=== PATIENT | female | born 2000 | race African-American/Black ===

== ENCOUNTER 2021-11-30 22:53 | Emergency (ER) | payer OTHER ==
--- NOTE | 2021-12-01 00:16 | ED Physician Documentation ---
PD HPI OPHTHO - Stated complaint Stated Complaint: BLURRY VISION/HEADACHE/LT EAR PULSE - Chief complaint Chief Complaint: Neuro - History obtained from History obtained from: Patient - Additional information Additional information: Patient presenting for evaluation of single left eye floater which she noticed this evening at 8 PM in the left eye. She describes it as a squiggly black line in the upper outer portion of her left visual field.She denies any acute changes to her vision. . Patient is 28 weeks with an uncomplicated . She has been feeling the baby move. She has been experiencing migraine headaches for the last several weeks and has seen an edi manager which diagnosed her with havingSwollen optic nerves to both eyes. However she was told due to the that she is not able to receive treatment for it. She was told she has astigmatism and is awaiting on prescription glasses for that.She does take Tylenol for her migraines which does help. She denies trauma.Denies thunderclap in intensity of her headaches. Denies focal weakness.Denies cloudy or loss of vision.Patient has been monitoring her blood pressures through her and they have been normal.This is her first . Review of Systems Constitutional: denies: Fever Eyes: reports: Other (Left eye floater) Ears: denies: Loss of hearing Nose: denies: Congestion Throat: denies: Dental pain / toothache Cardiac: denies: Chest pain / pressure Respiratory: denies: Dyspnea, Cough GI: reports: Nausea (With headaches, using Zofran). denies: Abdominal Pain, Vomiting : denies: Vaginal bleeding Skin: denies: Rash Neurologic: reports: Headache. denies: Syncope PD PAST MEDICAL HISTORY - Past Medical History Past Medical History: Yes Neuro: Headaches HEENT: Other Musculoskeletal: Chronic back pain Other Past Medical History: swelling of optic nerve - Past Surgical History Past Surgical History: No - Present Medications Home Medications: Ambulatory Orders Medication Instructions Recorded Confirmed No Known Home Medications 11/30/21 11/30/21 - Allergies Allergies/Adverse Reactions: Allergies Allergy/AdvReac Type Severity Reaction Status Date / Time No Known Drug Allergies Allergy Verified 11/30/21 23:00 - Social History Does the pt smoke?: No Smoking Status: Never smoker Does the pt drink ETOH?: No Does the pt have substance abuse?: No - Immunizations Immunizations are current?: Yes PD ED PE NORMAL - General General: Alert and oriented X 3, No acute distress, Well developed/nourished - HEENT HEENT: Atraumatic, PERRL, EOMI, Ears normal, Moist mucous membranes, Pharynx benign, Dentition benign - Neck Neck: Supple, no meningeal sign - Cardiac Cardiac: RRR, No gallop, Strong equal pulses - Respiratory Respiratory: No respiratory distress, Clear bilaterally - Abdomen Abdomen: Normal bowel sounds, Soft, Non tender, Non distended, Other (Gravid abdomen) - Derm Derm: Normal color - Extremities Extremities: No deformity - Neuro Neuro: Alert and oriented X 3, 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 Her visual acuity is intact. There is no change to her vision and no pain. Symptoms do not suggest acute angle glaucoma. No signs of eye infection.Extraocular movements are intact.No signs of foreign body Or globe rupture. I discussed with the patient the possible etiologies of a floater in her eye which could include an issue with her retina.I do not think she needs emergent ophthalmology evaluation in the middle of the night As her vision is normal and there is no eye pain but do feel she needs urgent evaluation within 24 hours. Patient was advised that she needs urgent ophthalmology evaluation tomorrow and was given information for local breakfast manager. Patient was advised that if she is not able to see an breakfast manager tomorrow that she should return to the emergency department for assistance. She was also given strict return precautions for any changes to her vision, development of pain, worsening headache. In regards to her headache, I do not think she needs emergent imaging. Her exam does not suggest Of stroke, Hemorrhage, dissection or sinus thrombosis. Her blood pressure is within normal limits and she does not exhibit features of preeclampsia. Reassuring heart tones and tracings. Departure - Departure Disposition: 01 Home, Self Care Clinical Impression: Vitreous floaters of left eye Condition: Stable Instructions: Flashes and Floaters Tx Follow-Up: Zachary Blackburn MD [Provider Admit Priv/Credential] - Comments: You were evaluated for a floater in your left eye. The exact cause is unclear but you need to be seen by an breakfast manager (eye doctor) withing 24 hours As this eye floater could indicate a problem with your retina. If this gets worse and there is a problem with your retina, it could permanently impact your vision. Fortunately at this time your vision appears normal. Please call Dr. Zachary Blackburn at [facility] tomorrow morning [phone] at 8 AM for an appointment. If you are not able to be seen tomorrow (Wednesday) by an breakfast manager, Return to the emergency department. If it anytime you have a change in your vision, worsening pain, any new symptoms then please return immediately to the emergency department. Discharge Date/Time: 12/01/21 00:27
[2021-12-01 00:29] VITALS: BP 123/72
== END 2021-12-01 00:27 | disposition home or self-care (01) ==
LOC: ED 22:53
DX: H43.392 Other vitreous opacities, left eye (principal); O99.891 Other specified diseases and conditions complicating pregnancy; Z3A.28 28 weeks gestation of pregnancy
CPT/HCPCS: 99282; 99284

== ENCOUNTER 2022-12-31 10:01 | Day surgery (SDC) | payer OTHER ==
[2022-12-31] MEDS ORDERED: BUPIVACAINE 0.25% PF 30 ML VIAL ONE ×2 (10:05→10:06)
[2022-12-31] MEDS ORDERED: LIDOCAINE MPF 2%-EPI 1:200000 20 ML VIAL ONE (10:05)
[2022-12-31] MEDS ORDERED: LACTATED RINGERS 1,000 ML IV ONE ×2 (10:07→13:41)
[2022-12-31] MEDS ORDERED: CEFAZOLIN 2G/50ML 0.9% NS 2 GM/50 ML BAG IV ONE (10:13)
[2022-12-31] MEDS ORDERED: MIDAZOLAM 2 MG/2 ML VIAL ONE (10:17)
[2022-12-31 10:18] LABS: HCG UR QUAL NEGATIVE
[2022-12-31] MEDS ORDERED: LIDOCAINE-PF 2% 10 ML AMP SUBQ ONE (10:18)
[2022-12-31] MEDS ORDERED: fentaNYL 100 MCG/2 ML VIAL ONE (10:18)
[2022-12-31] MEDS ORDERED: ROPIVACAINE 0.5% PF 20 ML VIAL ONE (10:18)
--- NOTE | 2022-12-31 10:41 | ANESTHESIA ---
Pre-Anesthesia VS, & Labs - Diagnosis ventral hernia - Procedure open ventral hernia repair with mesh Vital Signs: Temp Pulse Resp BP Pulse Ox O2 Flow Rate 35.8 C L 58 L 18 121/66 100 12/31/22 10:18 12/31/22 10:18 12/31/22 10:18 12/31/22 10:18 12/31/22 10:18 Height: 5 ft 2 in Weight (kg): 76 kg Body Mass Index: 30.6 BMI Classification: Obese - NPO >8 hours - Is Patient ?: No - Lab Results Lab results reviewed: Yes Home Medications and Allergies No Known Home Medications 11/30/21 Allergies/Adverse Reactions: Allergies Allergy/AdvReac Type Severity Reaction Status Date / Time No Known Drug Allergies Allergy Verified 11/30/21 23:00 Anes History & Medical History - Anesthetic History Anesthesia Complications: reports: No previous complications Family history of Anesthesia Complications: Denies Family history of Malignant Hyperthermia: Denies - Medical History Cardiovascular: reports: None Pulmonary: reports: None Gastrointestinal: reports: None Urinary: reports: None Neuro: reports: Headaches Musculoskeletal: reports: Chronic back pain Endocrine/Autoimmune: reports: None Skin: reports: Eczema Smoking Status: Never smoker - Surgical History Gynecologic: reports: section Exam General: Alert, Oriented x3, Cooperative Dental: WNL Mouth Openin Fingerbreadth Neck Mobility: Normal Mallampati classification: II Thyromental Distance: 4-6 cm Respiratory: Lungs clear, Normal breath sounds, No respiratory distress Cardiovascular: Regular rate Neurological: Normal speech Mental/Cognitive Status: Alert/Oriented X3, Normal for patient Cognitive Status: Within normal limits Plan Anesthesia Type: General Consent for Procedure(s) Verified and Reviewed: Yes Code Status: Attempt Resuscitation ASA classification: 2-Mild systemic disease Is this case an emergency?: No
[2022-12-31] MEDS ORDERED: MORPHINE 2 MG/ML CARPUJECT IVP PRN (10:42)
[2022-12-31] MEDS ORDERED: ePHEDrine 50 MG/ML VIAL IVP PRN (10:42)
[2022-12-31] MEDS ORDERED: METOCLOPRAMIDE 10 MG/2 ML VIAL IVP PRN (10:42)
[2022-12-31] MEDS ORDERED: ONDANSETRON 4 MG/2 ML VIAL IVP PRN ×2 (10:42→12:53)
[2022-12-31] MEDS ORDERED: NALOXONE 0.4 MG/ML VIAL IVP PRN (10:42)
[2022-12-31] MEDS ORDERED: ATROPINE ABBOJECT 1 MG/10 ML SYRINGE IVP PRN (10:42)
[2022-12-31] MEDS ORDERED: HYDROmorphone 0.5 MG/0.5 ML SYRINGE IVP PRN ×2 (10:42→12:53)
[2022-12-31] MEDS ORDERED: fentaNYL 100 MCG/2 ML VIAL IVP PRN (10:42)
--- NOTE | 2022-12-31 10:55 | HISTORY & PHYSICAL EXAMINATION ---
Chief Complaint - Chief Complaint Chief Complaint: hernia bulge above belly button History of Present Illness - History Obtained From Records Reviewed: yes History obtained from: pt Exam Limitations: none - History of Present Illness HPI Comment/Other: hernia following History - Past Medical History Cardiovascular: reports: None Respiratory: reports: None Neuro: reports: Headaches Endocrine/Autoimmune: reports: None GI: reports: None : reports: None HEENT: reports: Chronic vision loss Psych: reports: None Musculoskeletal: reports: Chronic back pain Derm: reports: Eczema MRSA Hx?: No - Past Surgical History /PBX SUPERVISOR: reports: section Meds/Allgy - Home Medications Home Medications: Ambulatory Orders Medication Instructions Recorded Confirmed No Known Home Medications 11/30/21 12/24/22 - Allergies Allergies/Adverse Reactions: Allergies Allergy/AdvReac Type Severity Reaction Status Date / Time No Known Drug Allergies Allergy Verified 11/30/21 23:00 Review of Systems - Other Findings Other Findings: 10 pt ros as above otherwise unremarkable Exam - Vital Signs Reviewed Vital Signs: Yes Vital Signs: Vital Signs x48h Temp Pulse Resp BP Pulse Ox 12/31/22 10:18 35.8 C L 58 L 18 121/66 100 - Physical Exam General Appearance: positive: No acute distress, Alert Eyes Bilateral: positive: PERRL, EOMI ENT: positive: No signs of dehydration Neck: positive: No JVD, Trachea midline Respiratory: positive: Breath sounds nml Cardiovascular: positive: Regular rate & rhythm Abdomen: positive: Other (4 cm ventral hernia just cephalad of the umbilicus and diastasis) Neurologic/Psychiatric: positive: Oriented x3 Conclusion/Plan - Problem List (1) Ventral hernia Conclusion/Plan: plan open repair with mesh. parq held and consent obtained - Lab Results Lab results reviewed: Yes
[2022-12-31] MEDS ORDERED: LACTATED RINGERS 1,000 ML IV SCH (11:00)
[2022-12-31] MEDS ORDERED: DEXAMETHASONE 4 MG/ML VIAL ONE (11:09)
[2022-12-31] MEDS ORDERED: ONDANSETRON 4 MG/2 ML VIAL ONE ×2 (11:09→12:57)
[2022-12-31] MEDS ORDERED: BUPIVACAINE 0.25% PF 30 ML VIAL SUBQ ONE (11:13)
[2022-12-31] MEDS ORDERED: oxyCODONE 5 MG TABLET PO PRN (12:53)
--- NOTE | 2022-12-31 12:58 | OPERATIVE REPORT ---
Operative Report - General Procedure Date: 12/31/22 Planned Procedure: open ventral hernia repair with mesh Pre-Op Diagnosis: ventral hernia Procedure Performed: open ventral hernia repair with mesh Post Op Diagnosis: ventral hernia - Procedure Note Primary Surgeon: noreen lopez Anesthesia Technique: General ET tube, Local Pathology: not sent Estimated Blood Loss (mL): 2 Drain/Tube Type: Other (none) Indications: painful hernia bulge Findings: 4 x 6 cm defect 1.5 to 2 in x 4.5 inch mesh placed preperitoneal Complications: none - Other Other Information/Narrative: The patient was properly identified brought to the operating room and placed in supine position. Sequential compression devices were placed. General endotracheal anesthesia was induced. She was prepped and draped in a sterile fashion and given preoperative antibiotics. She had a sizable defect cephalad and at her umbilicus. Skin had been stretched. She has a diastases as well. An elliptical incision measuring approximately 5 cm in length was made just cephalad of her umbilicus. An ellipse of skin and subcutaneous tissue was removed down to the hernia sac. Hernia sac was carefully released from the fascial defect edge in all directions with use of cutting current cautery. The peritoneum was carefully peeled off from the underside of the rectus. A 2 mm hole in the peritoneum was closed with a [id number] 3-0 Vicryl. She had a fascial defect of approximately 4 x 6 to 8 cm. The diastases was imbricated with a few interrupted 0 Ethibond sutures. 1 and half to 2 inch wide by 4 and half inch tall polypropylene mesh was placed and secured with well over a dozen interrupted 0 Ethibond sutures. Sutures were placed 2 to 3 cm back from the fascial defect edge in all directions. Fascia was then closed over the mesh with three-point interrupted 0 Tycron suture. Mesh lay in good position without tension. No apparent complications. Counts were correct. Umbilical skin was tacked back down to fascia with interrupted 2-0 Vicryl. Cutaneous tissue was closed with multiple interrupted 2-0 Vicryl sutures. Buried interrupted subdermal 3-0 Vicryl sutures were then placed. Skin was closed with a running 4-0 Monocryl subcuticular suture. Dressing was applied. She tolerated the procedure well was awakened and brought to recovery in good condition.
[2022-12-31] MEDS ORDERED: LACTATED RINGERS 100 ML IV ONE (12:59)
[2022-12-31] MEDS ORDERED: HYDROmorphone 1 MG/ML CARPUJECT ONE (13:10)
--- NOTE | 2022-12-31 13:25 | ANESTHESIA POST OP EVALUATION ---
Anesthesia Post Eval - Post Anesthesia Eval Vitals: Last Vital Signs Temp 36.1 C L 12/31/22 13:20 Pulse 73 12/31/22 13:20 Resp 19 12/31/22 13:20 BP 121/78 12/31/22 13:20 Pulse Ox 99 12/31/22 13:20 O2 Flow Rate CV Function Including HR & BP: Stable Pain Control: Satisfactory Nausea & Vomiting: Negative Mental Status: Baseline Respiratory Status: Airway Patent Hydration Status: Satisfactory Anesthesia Complications: None
[2022-12-31] MEDS ORDERED: oxyCODONE 5 MG TABLET ONE (14:05)
[2022-12-31 14:21] VITALS: BP 108/73
== END 2022-12-31 10:02 | disposition home or self-care (01) ==
LOC: SDS 10:01
PROVIDERS: ATTEND Surgery
DX: K43.9 Ventral hernia without obstruction or gangrene (principal); E66.9 Obesity, unspecified; Z68.30 Body mass index [BMI] 30.0-30.9, adult
CPT/HCPCS: 49593; 81025; A9270; C1781; J0690; J1170; J2795; J7120

== ENCOUNTER 2024-08-19 12:43 | Observation (INO) ==
--- NOTE | 2024-08-19 12:51 | ED Physician Documentation ---
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 ) Meds/Allgy Home Medications Ambulatory Orders Medication Instructions Recorded Confirmed No Known Home Medications 08/19/24 08/19/24 Allergies Allergies Allergy/AdvReac Type Severity Reaction Status Date / Time No Known Drug Allergies Allergy Verified 08/19/24 13:05 [facility] Medical History Medical History (Updated 08/19/24 @ 16:02 by Mahamed Mae MD) Sickle cell anemia Surgical History Surgical History (Updated 08/19/24 @ 15:43 by Mahamed Mae MD) H/O ventral hernia repair Social History Social History (Updated 08/19/24 @ 13:04 by Maite Ruiz RN) Smoking Status: Never smoker Do you vape?: No Living arrangement: At home Support Person: No Relationship: Level: Independent Do you feel safe in your home environment?: Yes Suffered physical, verbal, emotional, or financial abuse?: No History of Abuse: No Exam Constitutional normal general appearance and average body habitus HENMT oral mucous membranes normal Respiratory breath sounds equal bilaterally and normal respiratory effort Cardiovascular normal heart rate noted and regular rhythm noted Gastrointestinal abdomen soft to palpation, tender to palpation (moderate), (RLQ) and (suprapubic) and nontender to percussion Genitourinary no CVA tenderness Extremities normal to inspection Psychiatry mental status grossly normal, oriented x3 and thought process normal Skin skin color abnormal (pale) Results Vitals Vitals: Vital Signs - 24 hr 08/19/24 12:52 08/19/24 13:06 08/19/24 13:14 Temperature 36.4 C L Temperature Source Pulse Rate 90 Respiratory Rate 25 H Blood Pressure 101/77 O2 Saturation 100 O2 Source Room air Pain Intensity 7 7 7 08/19/24 13:16 08/19/24 13:31 08/19/24 13:43 Temperature Temperature Source Pulse Rate 71 Respiratory Rate 23 Blood Pressure 128/58 L O2 Saturation 100 O2 Source Room air Pain Intensity 7 3 2 08/19/24 13:49 08/19/24 14:02 08/19/24 14:45 Temperature 36 C L Temperature Source Temporal Artery Scan Pulse Rate 88 68 Respiratory Rate 16 18 Blood Pressure 107/70 99/53 L O2 Saturation 99 99 O2 Source Room air Room air Pain Intensity 2 6 6 08/19/24 15:33 Temperature Temperature Source Pulse Rate 84 Respiratory Rate 20 Blood Pressure 97/51 L O2 Saturation 97 O2 Source Room air Pain Intensity 4 Oxygen O2 Source Room air Labs Labs: Laboratory Tests 08/19/24 08/19/24 08/19/24 12:48 13:23 15:30 WBC 11.7 H RBC 3.50 L Hgb 9.3 L 7.6 L Hct 28.2 L 23.6 L MCV 80.6 L MCH 26.6 L MCHC 33.0 RDW 15.3 H Plt Count 327 MPV 13.0 H Neut # (Auto) 9.8 H Lymph # (Auto) 1.4 L [place] # (Auto) 0.5 Eos # (Auto) 0.0 Baso # (Auto) 0.0 Absolute Nucleated RBC 0.00 Nucleated RBC % 0.0 Sodium 132 L Potassium 4.1 Chloride 99 L Carbon Dioxide 19 L Anion Gap 14.0 H BUN 14 Creatinine 1.1 Estimated GFR (MDRD) 74 L Glucose 157 H Calcium 9.4 Magnesium 1.5 L Total Bilirubin 0.7 AST 9 L ALT 15 Alkaline Phosphatase 45 Total Protein 7.2 Albumin 4.3 Globulin 2.9 Albumin/Globulin Ratio 1.5 Lipase 17 Beta HCG, Quant 79437.5 Blood Type A POSITIVE Blood Type Recheck A POSITIVE Antibody Screen NEGATIVE Crossmatch IS Only See Detail Rads (name of study) OB US: Relevant Findings:: Prelim report reviewed (from US tech: mass in lower uterine segment/cervix. No adnexal masses. Some free fluid in pelvis. ) and Final report received (no IUP. No adnexal masses. Debris/mass in lower uterine segment c/w incomplete miscarriage.) PD Medical Decision Making ED course Complexity details: considered differential (Patient is approximately 6 to 7 weeks by dates with vaginal bleeding and cramping consistent with miscarriage. She is near syncopal with EMS and has relatively low blood pressure here. Had IV and fluids started. Type and cross was done.), d/w patient and d/w travel consultant (Dr. Mae, PET HOUSE SITTER) ED course: Early notification of on-call PET HOUSE SITTER given the degree of stated bleeding and the mild hypotension in the near syncope along with the vaginal bleeding. Ultrasound was ordered. Type and cross was ordered. IV was started with antiemetic and Toradol and IV fluids given. She remained normotensive but just marginally so with systolic blood pressure 98-106. Heart rate was not tachycardic. Initial blood count showed a hemoglobin of 9.6. She does not know what her baseline blood count is. History of sickle cell trait but not sickle cell disease so I would expect not an regular anemia. Ultrasound was concerning for some mass in the lower outer and lower uterine segment and cervix. No notable free fluid. Dr. Mae was here in the ER having been notified early on. He did see the ultrasound as well. He performed a pelvic exam and pulled out a parent gestational sac. The patient's repeat blood count was now 7.6 hemoglobin. She is feeling generally weak. She was still having some ongoing bleeding so this seemed appropriate for transfusion of a unit of blood after concurrence with Dr. Mae. She was continue with some IV fluids. I had given 1 g of tranexamic acid earlier as well. The patient is stable at this point but Dr. Dover will place her in observation for evaluating ongoing blood loss and vital signs and transfusion of blood. Discharge Plan Discharge Patient Disposition: ED Place in Observation Condition: Stable Clinical Impression: Acute blood loss anemia, Miscarriage, Uterine bleeding, Sickle cell trait Interventions: ED Admission Assessment Last Done: 08/19/24 16:15
[2024-08-19 13:06] LABS: BASOPHILS % (AUTO) 0.2 %; HCT - HEMATOCRIT 28.2 % (37.0-47.0); HGB - HEMOGLOBIN 9.3 g/dL (12.0-16.0); LYMPHOCYTES # (AUTO) 1.4 10^3/uL (1.5-3.5); LYMPHOCYTES % (AUTO) 11.9 %; MEAN CORPUSCULAR HEMOGLOBIN 26.6 pg (27.0-31.0); MEAN CORPUSCULAR VOLUME 80.6 fL (81.0-99.0); MONOCYTES # (AUTO) 0.5 10^3/uL (0.0-1.0); MONOCYTES % (AUTO) 3.9 %; NEUTROPHILS # (AUTO) 9.8 10^3/uL (1.5-6.6); NEUTROPHILS % (AUTO) 83.7 %; PLT - PLATELET COUNT 327 10^3/uL (130-450); RED CELL DISTRIBUTION WIDTH 15.3 % (12.0-15.0); WHITE BLOOD COUNT 11.7 x10^3/uL (4.8-10.8)
[2024-08-19] MEDS: ONDANSETRON 4 MG/2 ML VIAL IVP STA (13:13)
[2024-08-19] MEDS: KETOROLAC 15 MG/ML VIAL IVP STA (13:14)
[2024-08-19] MEDS: SODIUM CHLORIDE 0.9% 1,000 ML IV STA ×2 (13:15→14:26)
[2024-08-19] MEDS: HYDROmorphone 0.5 MG/0.5 ML SYRINGE IVP STA (13:16)
[2024-08-19] MEDS: TRANEXAMIC ACID 1,000 MG in SODIUM CHLORIDE 0.9% 100ML 100 ML IV STA (13:19)
[2024-08-19 13:21] LABS: ALBUMIN 4.3 g/dL (3.2-5.5); ALBUMIN/GLOBULIN RATIO 1.5 (1.0-2.2); BILIRUBIN,TOTAL 0.7 mg/dL (0.2-1.0); CALCIUM 9.4 mg/dL (8.5-10.3); CREATININE 1.1 mg/dL (0.6-1.3); MAGNESIUM 1.5 mg/dL (1.7-2.3); POTASSIUM 4.1 mmol/L (3.5-4.5); TOTAL PROTEIN 7.2 g/dL (6.4-8.9)
[2024-08-19] MEDS: TRANEXAMIC ACID IN NACL 1,000 MG/100 ML BAG IV ONE (13:21)
[2024-08-19] MEDS: PROCHLORPERAZINE 10 MG/2 ML VIAL IVP STA (13:48)
--- NOTE | 2024-08-19 14:45 | CONSULTATION NOTE ---
History of Present Illness History of Present Illness HPI Comment/Other: Patient is 23-year-old -0-0-1 at approximate 6 weeks gestation. She presents today with heavy, abnormal uterine bleeding. She did take mifepristone and misoprostol yesterday from a telemedicine provider. I was consulted today due to persistent bleeding, hypotension, tachycardia and a hemoglobin and hematocrit of 9.3/28. She took mifepristone at approximate 11 AM and misoprostol at 4 PM yesterday. She started bleeding last night. This morning she has been soaking through several large adult diapers. She has not been using pads. She feels weak, short of breath with activity, and generally unwell. Meds/Allgy Home Medications Ambulatory Orders Medication Instructions Recorded Confirmed No Known Home Medications 08/19/24 08/19/24 Allergies Allergies Allergy/AdvReac Type Severity Reaction Status Date / Time No Known Drug Allergies Allergy Verified 08/19/24 13:05 [facility] Medical History Medical History (Updated 08/19/24 @ 16:02 by Mahamed Mae MD) Sickle cell anemia Surgical History Surgical History (Updated 08/19/24 @ 15:43 by Mahamed Mae MD) H/O ventral hernia repair Social History Social History (Updated 08/19/24 @ 13:04 by Maite Ruiz RN) Smoking Status: Never smoker Do you vape?: No Living arrangement: At home Support Person: No Relationship: Level: Independent Do you feel safe in your home environment?: Yes Suffered physical, verbal, emotional, or financial abuse?: No History of Abuse: No POLST Patient has POLST: No Results Lab Results 08/19/24 15:30 08/19/24 12:48 Other Lab Results: Lab Results x24hrs 08/19/24 08/19/24 08/19/24 Range/Units 15:30 13:23 12:48 WBC 11.7 H (4.8-10.8) x10^3/uL RBC 3.50 L (4.20-5.40) 10^6/uL Hgb 7.6 L 9.3 L (12.0-16.0) g/dL Hct 23.6 L 28.2 L (37.0-47.0) % MCV 80.6 L (81.0-99.0) fL MCH 26.6 L (27.0-31.0) pg MCHC 33.0 (32.0-36.0) g/dL RDW 15.3 H (12.0-15.0) % Plt Count 327 (130-450) 10^3/uL MPV 13.0 H (7.9-10.8) fL Neut # (Auto) 9.8 H (1.5-6.6) 10^3/uL Lymph # (Auto) 1.4 L (1.5-3.5) 10^3/uL Iron # (Auto) 0.5 (0.0-1.0) 10^3/uL Eos # (Auto) 0.0 (0.0-0.7) 10^3/uL Baso # (Auto) 0.0 (0.0-0.1) 10^3/uL Absolute Nucleated RBC 0.00 x10^3/uL Nucleated RBC % 0.0 /100WBC Sodium 132 L (135-145) mmol/L Potassium 4.1 (3.5-4.5) mmol/L Chloride 99 L (101-111) mmol/L Carbon Dioxide 19 L (21-32) mmol/L Anion Gap 14.0 H (6-13) BUN 14 (6-20) mg/dL Creatinine 1.1 (0.6-1.3) mg/dL Estimated GFR (MDRD) 74 L (>89) Glucose 157 H (74-104) mg/dL Calcium 9.4 (8.5-10.3) mg/dL Magnesium 1.5 L (1.7-2.3) mg/dL Total Bilirubin 0.7 (0.2-1.0) mg/dL AST 9 L (10-42) IU/L ALT 15 (10-60) IU/L Alkaline Phosphatase 45 (42-121) IU/L Total Protein 7.2 (6.4-8.9) g/dL Albumin 4.3 (3.2-5.5) g/dL Globulin 2.9 (2.1-4.2) g/dL Albumin/Globulin Ratio 1.5 (1.0-2.2) Lipase 17 (11-82) U/L Beta HCG, Quant 94573.5 mIU/mL Blood Type A POSITIVE Blood Type Recheck A POSITIVE Antibody Screen NEGATIVE Diagnostic Imaging Results Diagnostic Imaging Results: positive Prelim report reviewed and Read contemporaneously Review of Systems Constitutional Reports: Fatigue and Weakness; Denies: Fever, Chills or Diaphoresis Cardiovascular Reports: Syncope, lightheadedness and shortness of breath with exertion; Denies: shortness of breath when lying down Respiratory Reports: Shortness of breath; Denies: Cough Gastrointestinal Reports: Nausea; Denies: Abdominal pain or Vomiting Genitourinary Reports: Vaginal bleeding Endocrine Reports: Fatigue Exam Exam Constitutional: alert, oriented, ill-appearing. Cardiovascular: Tachycardia. Respiratory: no respiratory distress. Abdomen: nondistended, nontender, no guarding. Psych: affect and mood appropriate, normal interaction, good eye contact. : Large amount of blood and clot. On speculum exam, clot was removed from vagina and blood removed. Large solidified clot in cervical os and was grasped with ring forceps and removed, approximately 100 cc. After removal of clot, gestational sac could be seen and was removed with ring forceps and appeared intact. This was sent to pathology. Bleeding was minimal after removal. Conclusion/Plan Problem List (1) Miscarriage: Plan: Patient having an incomplete . Ultrasound reviewed with felter tennis balls and appears to have a large clot/structure in the lower uterine segment. No adnexal was noted. She did have an adnexal cyst that appeared simple measuring approximately 4 cm. After removal of clots and gestational sac, bleeding was minimal. Will monitor patient for stability. She does consent to blood transfusion if necessary. Repeat H&H pending. (2) Uterine bleeding: Plan: As above (3) Acute blood loss anemia: Plan: Consents to blood transfusion if indicated. (4) Contraception management: Plan: Discussed contraceptive options. She does want to start control, but does not desire anything during this visit. Qualifiers: Contraceptive encounter type: other general counseling and advice Q ualified Code(s): Z30.09 - Encounter for other general counseling and advice on contraception Lab Results 08/19/24 15:30 08/19/24 12:48 Diagnostic Imaging Results Diagnostic Imaging Results: positive Prelim report reviewed and Read contemporaneously
[2024-08-19 15:35] LABS: HCT - HEMATOCRIT 23.6 % (37.0-47.0); HGB - HEMOGLOBIN 7.6 g/dL (12.0-16.0)
[2024-08-19] MEDS ORDERED: SODIUM CHLORIDE FLUSH 0.9% 10 ML SYRINGE IVP PRN (15:58)
--- NOTE | 2024-08-19 16:08 | Ultrasound Report ---
PROCEDURE: US OB 1st Trimester INDICATIONS: early , vag bleeding OUTSIDE/PRIOR DATING DATA: Last menstrual period (LMP): 06/28/2024. TECHNIQUE: Real-time scanning was performed of the fetus and maternal pelvic organs, with image documentation. COMPARISON: None. FINDINGS: Intrauterine gestational sac present. Embryo: No findings of an intrauterine can be seen. Other: No perigestational fluid collection. Measurement variability in dating: +/- 4 weeks by LMP, +/- 7 days by mean sac diameter (use before 6 weeks gestation if crown-rump length not able to be measured), +/- 5 days by crown-rump length (6-12 weeks gestation). Maternal organs: Echogenic nonvascular material can be seen within the lower uterine segment, measur ing 3.9 x 2.4 centers. In vitro stripe measures up to 2.1 cm. The left ovary demonstrates a cyst measuring up to 4.3 cm, which is likely related to a corpus luteum . No adnexal masses are seen on either side. IMPRESSION: No findings of an intrauterine can be seen. No ectopic is seen. There is nonvascular hyperechoic material within the lower uterine segment, which likely represents d ebris from an incomplete spontaneous miscarriage. Close clinical follow-up with serial beta hCG measurements and serial ultrasound would be recommended , as clinically appropriate. Reviewed by: Ralph Jordan MD on 08/19/2024 3:07 PM [facility] Approved by: Ralph Jordan MD on 08/19/2024 3:07 PM [facility] Station ID: [id number]
[2024-08-19] MEDS ORDERED: SODIUM CHLORIDE FLUSH 0.9% 10 ML SYRINGE IVP SCH (17:00)
[2024-08-19] MEDS: LACTATED RINGERS 1,000 ML IV STA (17:02)
[2024-08-19 17:08] VITALS: O2SAT 100
[2024-08-19] MEDS: ONDANSETRON ODT 4 MG TABLET TL PRN (17:33)
[2024-08-19] MEDS: miSOPROStoL 200 MCG TABLET BC STA (18:26)
[2024-08-19 22:05] LABS: HCT - HEMATOCRIT 26.9 % (37.0-47.0); HGB - HEMOGLOBIN 9.1 g/dL (12.0-16.0)
[2024-08-19 23:12] VITALS: BP 110/46; TEMP 99
--- NOTE | 2024-08-20 12:01 | Discharge Summary ---
Discharge Summary Admit Date: 08/19/24 Discharge Date: 08/19/24 Discharging Provider: Mahamed Mae MD DIAGNOSES Admission Diagnoses: Incomplete Acute blood loss anemia Near syncope Discharge Diagnoses with Status of Each Condition: Complete Acute blood loss anemia Near syncope HPI History of Present Illness: Patient doing much better after RBC infusion. Should continue oral iron supplementation at home. Vital signs have normalized. Hemoglobin stable. Okay to discharge home. HOSPITAL COURSE Hospital Course: Patient presented to the ED after heavy uterine bleeding after an incomplete . She had an ultrasound that showed large amount debris in the lower uterine segment, a 4 cm simple ovarian cyst not concerning for ectopic. She received 2 units PRBCs for anemia with continued bleeding. During her exam, she had a large clot and gestational sac removed from the cervix and bleeding slowed during observation. As she recovered, vital signs normalized and she became stable to ambulate without dizziness. She was discharged that evening with return precautions. She declined immediate contraception, although will consider options moving forward. ALLERGIES Allergies Allergy/AdvReac Type Severity Reaction Status Date / Time No Known Drug Allergies Allergy Verified 08/19/24 13:05 MEDICATIONS Ambulatory Orders Medication Instructions Recorded Confirmed No Known Home Medications 08/19/24 08/19/24 LABS 08/19/24 22:01 08/19/24 12:48 FOLLOW UP Follow Up: With [facility] woman's care in 1 to 2 weeks TIME SPENT Time Spent in Discharge (Minutes): 20 Discharge Plan Discharge Patient Disposition: Home, Self Care Condition: Stable Prescriptions: No Action No Known Home Medications Activity Restrictions/Additional Instructions: May return to work and resume normal activities Wednesday, August 23, 2024. Print Language: Palestinian Patient Instructions: Anemia, ED Contraception Methods Stand Alone Forms: PCP List
--- NOTE | 2024-08-23 08:37 | Ultrasound Report ---
PROCEDURE: US OB Transvaginal INDICATIONS: early preg, vaginal bleeding alot OUTSIDE/PRIOR DATING DATA: Last menstrual period (LMP): 06/28/2024. TECHNIQUE: Real-time scanning was performed of the fetus and maternal pelvic organs, with image documentation. COMPARISON: None. FINDINGS: Intrauterine gestational sac present. Embryo: No findings of an intrauterine can be seen. Other: No perigestational fluid collection. Measurement variability in dating: +/- 4 weeks by LMP, +/- 7 days by mean sac diameter (use before 6 weeks gestation if crown-rump length not able to be measured), +/- 5 days by crown-rump length (6-12 weeks gestation). Maternal organs: Echogenic nonvascular material can be seen within the lower uterine segment, measur ing 3.9 x 2.4 centers. In vitro stripe measures up to 2.1 cm. The left ovary demonstrates a cyst measuring up to 4.3 cm, which is likely related to a corpus luteum . No adnexal masses are seen on either side. IMPRESSION: No findings of an intrauterine can be seen. No ectopic is seen. There is nonvascular hyperechoic material within the lower uterine segment, which likely represents d ebris from an incomplete spontaneous miscarriage. Close clinical follow-up with serial beta hCG measurements and serial ultrasound would be recommended , as clinically appropriate. Reviewed by: Jw Schaffer MD on 08/23/2024 8:36 AM PST Approved by: Jw Schaffer MD on 08/23/2024 8:36 AM PST Station ID: [id number]
== END 2024-08-19 23:23 | disposition home or self-care (01) ==
LOC: ED 12:43 → FBP 12:43
PROVIDERS: ADMIT Obstetrics & Gynecology; ATTEND Obstetrics & Gynecology
DX: D62 Acute posthemorrhagic anemia; I95.9 Hypotension, unspecified; O03.4 Incomplete spontaneous abortion without complication; D57.3 Sickle-cell trait; Z30.09 Encounter for other general counseling and advice on contraception; N83.202 Unspecified ovarian cyst, left side